=== PATIENT | female | born 1995 | race African-American/Black ===

== ENCOUNTER 2017-07-02 15:51 | Emergency (ER) | payer OTHER ==
[2017-07-02 15:58] VITALS: BP 119/60
--- NOTE | 2017-07-02 16:28 | ED ---
Upper Extremity Pain - HPI Summary HPI Summary: 21F presents with right middle finger for a week. She jammed twice. Last week she injured on a basketball. this week on the fridge. has pain in PIP joint with swelling there. full ROM with pain. no numbness or tingling. is right handed. is a student. - History of Current Complaint Chief Complaint: UCUpperExtremity Stated Complaint: RIGHT MIDDLE FINGER INJURY Time Seen by Provider: 07/02/17 16:00 Hx Last Menstrual Period: 06/24/17 - Allergies/Home Medications Allergies/Adverse Reactions: Allergies Allergy/AdvReac Type Severity Reaction Status Date / Time No Known Allergies Allergy Verified 07/02/17 15:58 Home Medications: Home Medications NK [No Home Medications Reported] 07/02/17 [History Confirmed 07/02/17] PMH/Surg Hx/FS Hx/Imm Hx Endocrine/Hematology History: Denies: Hx Anticoagulant Therapy Cardiovascular History: Denies: Hx Atrial Fibrillation Infectious Disease History: No Infectious Disease History: Denies: Traveled Outside the [place] in Last 30 Days - Family History Known Family History: Negative: Cardiac Disease - Social History Alcohol Use: Weekly Substance Use Type: Reports: None Smoking Status (MU): Never Smoked Tobacco Review of Systems Negative: Fever Negative: Chest Pain Negative: Shortness Of Breath Positive: Other - right middle finger All Other Systems Reviewed And Are Negative: Yes Physical Exam Triage Information Reviewed: Yes Vital Signs On Initial Exam: Initial Vitals Temp Pulse Resp BP Pulse Ox 98.3 F 64 14 119/60 100 07/02/17 15:53 07/02/17 15:53 07/02/17 15:53 07/02/17 15:53 07/02/17 15:53 Vital Signs Reviewed: Yes Appearance: Positive: Well-Appearing Skin: Positive: Warm, Dry Head/Face: Positive: Normal Head/Face Inspection Eyes: Positive: Normal, Conjunctiva Clear Respiratory/Lung Sounds: Positive: Clear to Auscultation, Breath Sounds Present Cardiovascular: Positive: Normal, RRR Musculoskeletal: Positive: Strength/ROM Intact - right middle finger, Edema Right - PIP right middle, Other - good pulses, capillary refill<2 secs, tenderness over PIP Neurological: Positive: Normal Psychiatric: Positive: Normal Diagnostics - Vital Signs Vital Signs Temp Pulse Resp BP Pulse Ox 07/02/17 15:53 98.3 F 64 14 119/60 100 - Laboratory Lab Statement: Any lab studies that have been ordered have been reviewed, and results considered in the medical decision making process. - Radiology finger Xray Interpretation: Positive (See Comments) - IMPRESSION: VOLAR PLATE AVULSION FRACTURE AT THE PIP. Radiology Interpretation Completed By: Radiologist Course/Dx - Course Course Of Treatment: 21F presents with right middle finger for a week. She jammed twice. Last week she injured on a basketball. this week on the fridge. has pain in PIP joint with swelling there. full ROM with pain. no numbness or tingling. is right handed. is a student. on exam swelling to PIP. neurovascular intact. xray shows avulsion fx of PIP. will have follow up with ortho just to make sure no ligament damage and that heals well. patient understands and agrees with plan. - Diagnoses Differential Diagnosis/HQI/PQRI: Positive: Fracture (Closed), Strain, Sprain Provider Diagnoses: Injury of right middle finger Discharge - Discharge Plan Condition: Good Disposition: HOME Patient Education Materials: Finger Fracture (ED) Referrals: No Primary Care Phys,NOPCP [Primary Care Provider] - Kayla Cheng MD [Medical Doctor] - Additional Instructions: Keep finger in splint Take Tylenol or ibuprofen every 6 hours as needed for pain Apply ice, rest, elevate Follow up with ortho Return to ED if develop any new or worsening symptoms
--- NOTE | 2017-07-02 16:28 | RAD ---
INDICATION: Right middle finger injury COMPARISON: None TECHNIQUE: AP, lateral, and oblique views were obtained. FINDINGS: There is a small volar plate avulsion fracture at the base of the middle phalanx. No other fractures are evident. No additional significant findings. Age. IMPRESSION: VOLAR PLATE AVULSION FRACTURE AT THE PIP.
== END 2017-07-02 17:03 | disposition home or self-care (01) ==
LOC: UCCORT 15:51
DX: S69.91XA Unspecified injury of right wrist, hand and finger(s), initial encounter (principal); W21.05XA Struck by basketball, initial encounter; Y92.9 Unspecified place or not applicable
CPT/HCPCS: 73140; 99201; G0463